=== PATIENT | male | born 1940 | race Caucasian/White ===

== ENCOUNTER → 2017-05-25 | Outpatient (CLI) | payer MEDICARE, BC ==
[~2017-05-25] MED LIST: ASPIRIN325 PO; CRESTOR5 MG PO; FISH OIL 1,001000 M2 PO; FISH OIL 1,001000 MG PO; FLOMAX PO; HYDROCODON-ACE1 EAC5 PO; HYDROCODONE-AP1 EA11 PO; HYDROCODONE-AP1 EAC6 PO; HYDROCODONE-APA1 TA1 PO; LEVAQUIN 750 M750 MG PO; LIDODERM 5%1 PATC1 TRANSDERM; MEDROLDOSEPACK PO; METFORMIN HCL500 MG PO; MIRALAX17 GM PO; MOBIC7.5 MG PO; MS CONTIN15 MG PO; MS CONTIN30 MG PO; MS CONTIN60 MG PO; NORCO 10-325 T1 EACH PO; NORCO 7.5-3251 EACH PO; PROAIR HFA8.5 GM INH; PROTONIX40 M1 PO; STELAZINE PO; STOOL SOFTENER1 EAC2 PO; TOPROL XL PO; TYLENOL325 MG PO; ZANAFLEX4 M1 PO; ZANAFLEX4 MG PO; ZOCOR PO; ms contin PO
--- NOTE | 2017-05-27 09:59 | PAINCON ---
[address] [address] PAIN MANAGEMENT CONSULTATION Name: TARAN MAI [id number] Admission: 05/25/17 Attend Phys: Edvin Tomlinson Discharge: Date of : 39 Report #: [id number] THIS REPORT FOR: //name// CC: Too Cardoso DATE OF SERVICE: 05/25/2017 The patient is a 76-year-old gentleman being treated for lumbar radiculopathy, axial back pain, DJD affecting left shoulder, history of pancreatitis, requiring high-risk complex medication management. Last seen in Pain Clinic on 04/27/2017. Prior random drug screen at that date was positive for prescribed medication. The interval since we last saw him, he is seen in the ER 05/07/2017. Noting significant right knee pain. Returns to Pain Clinic today noting pain remains problematic and interferes with function. He did see an orthopedic surgeon about a week and a half ago. They suggested patient may benefit from a total knee arthroplasty; he has a followup appointment in 4 weeks. He had prior had a left total knee arthroplasty years ago and that is actually doing reasonably well. Uses a cane in his right hand, notes his low back and neck pain seems to be better (we did resume low-dose MS Contin 15 mg q. 8 hours at last visit). Prior, he had been on MS Contin 30 mg q. 8 hours for many years, but was taken off this when he was admitted to the hospital last fall with cognitive dysfunction and impairment. Today's subjective pain score on 7 on a VAS. PHYSICAL EXAMINATION: Shows 5 feet 11 inches, 253-pound gentleman, BMI is elevated at 35.6 kg/m2. Blood pressure is 155/86, pulse 80, respirations 16. Rises from chair using armrest. Gait is moderately antalgic favoring the right knee. Diffuse tenderness across the low back, endomorphic build. No discrete trigger points noted. We reviewed the fact that opiate medications are being used to provide analgesia adequate to support activities of daily living, not attempting to achieve a specific pain score on the 0-10 Visual Analog Scale. The current opiate medications are providing sufficient analgesia to allow the patient to participate in activities of daily living. The patient is not exhibiting any aberrant behavior suggestive of drug diversion. The patient is not having any adverse reactions to medications. The patient is not suffering from daytime somnolence or mental acuity changes. The patient is managing opiate-induced constipation with appropriate ayqi-wih-sijhkdc [place] [address] PAIN MANAGEMENT CONSULTATION Name: SERGEITARAN Jonathan Room: [facility]#: [id number] Admission: 05/25/17 Attend Phys: Edvin Tomlinson Discharge: Date of : 39 Report #: [id number] considerations. The patient was counseled on concern for caution with operating a motor vehicle while using opiate medications. A physical exam was performed and the patient's functional status was evaluated. All patients with back pain were advised against the bed rest greater than 4 days and were advised to return to normal activities. Pain score assessment was noted and the treatment plan was reviewed with the patient. All current medications, both prescribed and OTC were reviewed and reconciled on the electronic medical record. Tobacco screening was accomplished and smoking cessation was advised when indicated. BMI was noted and diet/exercise modification was recommended for all patients following outside normal parameters. I reviewed with the patient today their responsibilities to safeguard prescription medications, reviewed their responsibility to utilize medications only as prescribed by the physician. They are to seek and receive pain medications only from 1 physician group ( [facility]). They are to use 1 pharmacy and keep the clinic informed if they change pharmacies. Their responsibilities include making followup visits in a timely fashion and to avoid abrupt discontinuation of medication usage. Their responsibilities further include bringing their medications (bottles from the pharmacy with residual pills) to the visit for possible confirmation of pill counts and the patient understands it is their responsibility to submit to random drug screens to ensure both that the medications prescribed are present, and that no other controlled substances are present. All prescriptions provided today were generated electronically. ASSESSMENT: Chronic axial back pain; lumbar radiculopathy; degenerative joint disease bilateral knees, status post left total knee arthroplasty, in need of a right total knee arthroplasty. RECOMMENDATION: Continue MS Contin 15 mg q. 8 hours, taken the liberty of writing for 2 months of medications. Continue hydrocodone 7.5/325 up to 4 a day for breakthrough pain. We will see the patient in 2 months or earlier if needed. May require short increase in overall opiate, status post total knee arthroplasty, but we will try and aggressively wean back to simply hydrocodone for p.r.n. pain after rehab for knee. <ELECTRONICALLY SIGNED> By: Too Pina DO 05/27/17 0959 [id number] [id number] Pina DO /nt
== END ==
LOC: M.PC 02:35
DX: M54.16 Radiculopathy, lumbar region (principal); M54.9 Dorsalgia, unspecified; M17.0 Bilateral primary osteoarthritis of knee; M19.012 Primary osteoarthritis, left shoulder; Z87.19 Personal history of other diseases of the digestive system; Z79.899 Other long term (current) drug therapy; Z96.653 Presence of artificial knee joint, bilateral

== ENCOUNTER → 2017-06-08 | Outpatient (CLI) | payer MEDICARE, BC ==
--- NOTE | 2017-06-10 07:24 | PAINCON ---
[address] [address] PAIN MANAGEMENT CONSULTATION Name: TARAN MAI [id number] Admission: 06/08/17 Attend Phys: Edvin Tomlinson Discharge: Date of : 39 Report #: [id number] THIS REPORT FOR: //name// CC: FAM unknown Too Pina DATE OF SERVICE: 06/08/2017 HISTORY OF PRESENT ILLNESS: The patient is a 76-year-old gentleman, typically treated for chronic lumbar radiculopathy, axial back pain and abdominal pain requiring high risk complex medication management. Last seen in pain clinic on 05/25/2017. Continued on MS Contin 15 mg q.8 hours. We had added a "prn" recently, he is using hydrocodone 7.5/325 up to 4 a day for breakthrough pain. He was having ongoing right knee pain on last visit. Prior random drug screen on 04/27/2017 was positive for prescribed medications. He presents to the pain clinic today for acute exacerbation of right knee pain. He is scheduled to see an orthopedic surgeon on 06/14/2017. He notes he has DJD and they have talked about replacing the knee, but he has significant ballottable edema and extreme pain in the knee. PHYSICAL EXAMINATION: Shows afebrile gentleman. Temperature is 98.3, blood pressure 149/67, pulse 76, respiration is 16. Rates his pain an 8-10 on a VAS. Pain is primarily right knee at this point. Again, ballottable edema was appreciable. There is no erythema or calor over the knee. ASSESSMENT: Degenerative joint disease with acute exacerbation of right knee pain. RECOMMENDATIONS: Arthrocentesis, right knee and steroid injection. PROCEDURE NOTE: After written and informed consent was obtained, the patient had a 3-minute orthopedic prep to the right knee. Skin wheal with Xylocaine was raised. A 22-gauge Angiocath was placed from a superior medial aspect in an inferior lateral trajectory under the patella. A 20 mL of essentially straw colored clear fluid was aspirated. A 40 mg triamcinolone plus 2 mL of 0.5% preservative-free bupivacaine was injected into and around the knee joint. Timpson were removed. The area was cleansed. Band-Aids applied. The patient monitored for an appropriate period of time, discharged in good and stable condition. <ELECTRONICALLY SIGNED> By: Too Pina DO 06/10/17 0724 1429 [id number] Pina DO /nt
== END | disposition home or self-care (01) ==
LOC: M.PC 01:27
DX: M17.11 Unilateral primary osteoarthritis, right knee (principal); G89.29 Other chronic pain; Z79.891 Long term (current) use of opiate analgesic; Z98.890 Other specified postprocedural states; Z79.82 Long term (current) use of aspirin; Z79.899 Other long term (current) drug therapy

== ENCOUNTER → 2017-06-22 | Outpatient (CLI) | payer MEDICARE, BC ==
--- NOTE | 2017-06-27 07:21 | PAINCON ---
[address] [address] PAIN MANAGEMENT CONSULTATION Name: TARAN MAI [facility]#: [id number] Admission: 06/22/17 Attend Phys: Edvin Tomlinson Discharge: Date of : 39 Report #: [id number] THIS REPORT FOR: //name// CC: FAM unknown Too Pina DATE OF SERVICE: 06/22/2017 HISTORY OF PRESENT ILLNESS: The patient is a pleasant 76-year-old gentleman typically treated for lumbar radiculopathy, axial back pain, requiring high risk complex medication management. Two weeks ago, 06/08/2017, he had presented to the pain clinic with increasing swelling of the left knee. I did an arthrocentesis removing 20 mL of straw-colored fluid. The patient returns to the pain clinic today. Knee edema has recurred. He has increasing pain in the knee. PHYSICAL EXAMINATION: GENERAL: Does show a pleasant 76-year-old gentleman. VITAL SIGNS: Note, he is afebrile, temperature 98.5, blood pressure 157/97, pulse 89 and respirations are 18. MUSCULOSKELETAL: Rates pain at 8, right knee; 5/10 elsewhere. Does have a lot of edema in the right knee. RECOMMENDATIONS: We will repeat arthrocentesis today and refer to Orthopedics. PROCEDURE NOTE: Right knee arthrocentesis with fluoroscopy. PROCEDURE: After written and informed consent was obtained, the patient was taken to the fluoroscopy suite, placed in supine position with bolster under the right knee. Three minutes orthopedic prep was accomplished. Skin wheal with Xylocaine was raised. A 20-gauge Angiocath was inserted from superomedial entry in an inferolateral trajectory under the patella. Fluoroscopy time was under 5 seconds showed good needle placement. Stylet was removed and 15 mL of a moderately blood tinged clear aspirate was removed. A 20 mg of triamcinolone plus 2 mL of 0.5% preservative-free bupivacaine was injected in the knee. Area was cleansed, Band-Aids applied. The patient was told to use ice to the area today. Referred him to Orthopedics for further evaluation, possible arthroscopy. <ELECTRONICALLY SIGNED> By: Too Pina DO 06/27/17 0721 1251 0203Too Pina DO /nt
== END | disposition home or self-care (01) ==
LOC: M.PC 02:55
DX: M25.561 Pain in right knee (principal); G89.29 Other chronic pain; M19.90 Unspecified osteoarthritis, unspecified site; Z79.891 Long term (current) use of opiate analgesic; Z79.82 Long term (current) use of aspirin

== ENCOUNTER 2017-07-16 21:46 | Emergency (ER) | payer MEDICARE, BC ==
[~2017-07-16] VITALS: Ht 180.3 cm; Wt 111.1 kg
[2017-07-16] MEDS ORDERED: NORCO 10-325 T1 EACH PO (22:00)
[2017-07-16 22:05] VITALS: BP 176/100
[2017-07-20] MEDS ORDERED: NORCO 7.5-3251 EACH PO (08:36)
[2017-07-20] MEDS ORDERED: MS CONTIN15 MG PO (08:36)
[2017-07-20] MEDS ORDERED: MS CONTIN30 MG PO (08:37)
[2017-09-07] MEDS ORDERED: NORCO 7.5-3251 EACH PO (08:44)
[2017-09-07] MEDS ORDERED: MS CONTIN15 MG PO (08:44)
[2017-11-02] MEDS ORDERED: NORCO 7.5-3251 EACH PO (08:25)
[2017-11-02] MEDS ORDERED: MS CONTIN15 MG PO ×2 (08:25)
[2017-11-02] MEDS ORDERED: ZANAFLEX4 MG PO (08:25)
== END 2017-07-16 22:16 | disposition home or self-care (01) ==
LOC: M.ERS 21:46
DX: M25.561 Pain in right knee (principal); G89.29 Other chronic pain; M19.90 Unspecified osteoarthritis, unspecified site; I10 Essential (primary) hypertension; I25.10 Atherosclerotic heart disease of native coronary artery without angina pectoris; E78.00 Pure hypercholesterolemia, unspecified; F11.11 Opioid abuse, in remission; Z96.652 Presence of left artificial knee joint; Z85.46 Personal history of malignant neoplasm of prostate

== ENCOUNTER → 2017-07-20 | Outpatient (CLI) | payer MEDICARE, BC ==
--- NOTE | 2017-07-27 07:59 | PAINCON ---
[address] [address] PAIN MANAGEMENT CONSULTATION Name: TARAN MAI [id number] Admission: 07/20/17 Attend Phys: Edvin Tomlinson Discharge: Date of : 39 Report #: [id number] THIS REPORT FOR: //name// CC: FAM unknown Too Pina DATE OF SERVICE: 07/20/2017 The patient is a 76-year-old gentleman well known to the Pain Clinic, originally treated for lumbar radiculopathy and axial back pain, has ongoing DJD affecting right knee and left shoulder requiring complex medication management. Last seen in the Pain Clinic on 06/22/2017 when we did a right knee arthrocentesis taking about 20 mL of fluid off, had prior done similar arthrocentesis on 06/08/2017. The patient returns to Pain Clinic today. We had a prolonged visit, greater than 25 minutes was spent with the patient reviewing significant interval issues. The patient notes pain in the knee has continued to be quite problematic. In fact, he presented to the ER on 07/16/2017. They did provide him a prescription with some hydrocodone 10. He had run out of his morphine. He notes the pain in the left knee is simply intractable. He has markedly antalgic gait presently. PHYSICAL EXAMINATION: Otherwise, shows somewhat disheveled 76-year-old gentleman, BMI is 33 kg/m2. Blood pressure is modestly elevated 170/89, pulse 108, respirations 16. Rates his pain "10" on VAS. Pain primarily in the right knee. Does have an appointment with Dr. Graff for a total knee arthroplasty on 08/05/2017. He does, however, require cardiac clearance. I talked to the patient today about therapeutic options. Again, given significant need for total knee arthroplasty, I would hope that he could at least get a spinal anesthetic and some light sedation with proper cardiac monitoring he should be able to get through the surgery. I would plan on continuing his baseline MS Contin 15 mg t.i.d. postoperatively. Physical examination again does note significant pain in the right knee. There is a little bit of ballotable edema, markedly antalgic gait, diffuse tenderness. Endomorphic build with a moderate pannus. Lungs are clear at this time. Heart is regular and rhythmical without murmur. We reviewed the fact that opiate medications are being [place] [address] PAIN MANAGEMENT CONSULTATION Name: TARAN MAI Room: [facility]#: [id number] Admission: 07/20/17 Attend Phys: Edvin Tomlinson Discharge: Date of : 39 Report #: [id number] adequate to support activities of daily living, not attempting to achieve a specific pain score on the 0-10 Visual Analog Scale. The current opiate medications are providing sufficient analgesia to allow the patient to participate in activities of daily living. The patient is not exhibiting any aberrant behavior suggestive of drug diversion. The patient is not having any adverse reactions to medications. The patient is not suffering from daytime somnolence or mental acuity changes. The patient is managing opiate-induced constipation with appropriate taex-oit-lkyntnk agents and dietary considerations. The patient was counseled on concern for caution with operating a motor vehicle while using opiate medications. A physical exam was performed and the patient's functional status was evaluated. All patients with back pain were advised against the bed rest greater than 4 days and were advised to return to normal activities. Pain score assessment was noted and the treatment plan was reviewed with the patient. All current medications, both prescribed and OTC were reviewed and reconciled on the electronic medical record. Tobacco screening was accomplished and smoking cessation was advised when indicated. BMI was noted and diet/exercise modification was recommended for all patients following outside normal parameters. I reviewed with the patient today their responsibilities to safeguard prescription medications, reviewed their responsibility to utilize medications only as prescribed by the physician. They are to seek and receive pain medications only from 1 physician group ( [facility]). They are to use 1 pharmacy and keep the clinic informed if they change pharmacies. Their responsibilities include making followup visits in a timely fashion and to avoid abrupt discontinuation of medication usage. Their responsibilities further include bringing their medications (bottles from the pharmacy with residual pills) to the visit for possible confirmation of pill counts and the patient understands it is their responsibility to submit to random drug screens to ensure both that the medications prescribed are present, and that no other controlled substances are present. All prescriptions provided today were generated electronically. ASSESSMENT: Chronic axial back pain and degenerative joint disease affecting primarily right knee, history of left shoulder, status post left total knee arthroplasty, requiring complex medication management. RECOMMENDATIONS: 1. We will increase MS Contin to 30 mg b.i.d. (increasing overall load from 45-60 mg of morphine a day). I have taken the liberty of writing for 32 tablets; this will be 16 days prescription sufficient to get to the 08/05/2017 knee surgery. 2. Continue hydrocodone 7.5/325 four a day, prescription for 64 tablets, again 4 [place] [address] PAIN MANAGEMENT CONSULTATION Name: TARAN MAI Room: [facility]#: [id number] Admission: 07/20/17 Attend Phys: Edvin Tomlinson Discharge: Date of : 39 Report #: [id number] 3. I provided the patient with 2 prescriptions to be released 08/05/2017, the first reverting back to MS Contin 15 mg t.i.d., 90 tablets and the second continuing hydrocodone 7.5/325 four a day, dispensed 120 tablets. With significant ongoing pain today, patient was given an IM injection of Toradol 30 mg, monitored for an appropriate period of time, discharged in good and stable condition, noting some subjective improvement of baseline pain. <ELECTRONICALLY SIGNED> By: Too Pina DO 07/27/17 0759 0844 0907Too Pina DO /nt
== END ==
LOC: M.PC 04:51
DX: M17.11 Unilateral primary osteoarthritis, right knee (principal); M54.16 Radiculopathy, lumbar region; Z79.899 Other long term (current) drug therapy

== ENCOUNTER → 2017-09-07 | Outpatient (CLI) | payer MEDICARE, BC ==
--- NOTE | 2017-09-08 09:37 | PAINCON ---
[facility] [address] [place] [address] PAIN MANAGEMENT CONSULTATION Name: TARAN MAI Room: [facility] Brittany#: [id number] Admission: 09/07/17 Attend Phys: Edvin Tomlinson Discharge: Date of : 39 Report #: [id number] THIS REPORT FOR: //name// CC: Too Cardoso DATE OF SERVICE: 09/07/2017 The patient is a 76-year-old gentleman long treated for lumbar radiculopathy, axial back pain requiring complex medication management. He had prior been seen for right knee osteoarthritis in the last few visits. I had aspirated 20-30 mL of bloody aspirate several months ago. Fortunately, he progressed to have a right total knee arthroplasty about 30 days ago. He notes that he is finishing physical therapy today. He actually has fairly good range of motion in that knee. He does complain of ongoing pain, not managed with current medication. I had increased the patient from MS Contin 15 mg b.i.d. to MS Contin 30 mg b.i.d. prior to surgery, dropped back to MS Contin 15 mg t.i.d. with hydrocodone for breakthrough after surgery. He returns to pain clinic today, rating his pain as 7 on a VAS. Notes pain in the right knee is improved following the surgery. Still has generalized pain "all over" from his generalized osteoarthritis. PHYSICAL EXAMINATION: Shows 5 feet 11 inches, 246 pounds gentleman, BMI is 34.4 kilograms per meter squared. Blood pressure 137/65, pulse 87, respirations 16. He is alert and oriented to person, place and time presently. When he is on higher dose opiates, he became quite cognitively impaired. In fact, he was admitted to the hospital and was found to have 4 or 5 coins that he had swallowed, the ingestion of which he had no recall. EXTREMITIES: He rises from the chair using armrest. He actually has very good range of motion in that right knee, flexion is good to 110 degrees, extension is completely straight. Modestly antalgic gait, diffuse tenderness across the low back. Gait is minimally antalgic. We reviewed the fact that opiate medications are being used to provide analgesia adequate to support activities of daily living, not attempting to achieve a specific pain score on the 0-10 Visual Analog Scale. The current opiate medications are providing sufficient analgesia to allow the patient to participate in activities of daily living. The patient is not exhibiting any aberrant behavior suggestive of drug diversion. The patient is not having any adverse reactions to medications. The patient is not suffering from daytime somnolence or mental acuity changes. The patient is managing opiate-induced constipation with appropriate naxf-fhx-uhijmzl agents and dietary considerations. The patient was counseled on concern for caution with operating a motor vehicle [place] [address] PAIN MANAGEMENT CONSULTATION Name: TARAN MAI Room: [facility]#: [id number] Admission: 09/07/17 Attend Phys: Edvin Tomlinson Discharge: Date of : 39 Report #: [id number] A physical exam was performed and the patient's functional status was evaluated. All patients with back pain were advised against the bed rest greater than 4 days and were advised to return to normal activities. Pain score assessment was noted and the treatment plan was reviewed with the patient. All current medications, both prescribed and OTC were reviewed and reconciled on the electronic medical record. Tobacco screening was accomplished and smoking cessation was advised when indicated. BMI was noted and diet/exercise modification was recommended for all patients following outside normal parameters. I reviewed with the patient today their responsibilities to safeguard prescription medications, reviewed their responsibility to utilize medications only as prescribed by the physician. They are to seek and receive pain medications only from 1 physician group ( [facility]). They are to use 1 pharmacy and keep the clinic informed if they change pharmacies. Their responsibilities include making followup visits in a timely fashion and to avoid abrupt discontinuation of medication usage. Their responsibilities further include bringing their medications (bottles from the pharmacy with residual pills) to the visit for possible confirmation of pill counts and the patient understands it is their responsibility to submit to random drug screens to ensure both that the medications prescribed are present, and that no other controlled substances are present. All prescriptions provided today were generated electronically. ASSESSMENT: Chronic axial back pain, lumbar radiculopathy, osteoarthritis, chronic complex medication management. RECOMMENDATIONS: We will continue MS Contin 15 mg, we will increase to t.i.d. Continue hydrocodone 7.5/325 t.i.d. I have taken the liberty of writing for 2 months of current medication. RECOMMENDATION: Discussion with the patient today about therapeutic options going forward. I am leaving practice. If we cannot find another physician to take over my patients, I suggest he follow up with Dr. Kiser who had prior been his treating physician. Dr. Kiser left this office and the patient elected to stay at [facility]. He still remembers Dr. Kiser fondly. Again, the reason for me taking over the patient's care in May [address] Kiser relocated his practice to [place]; the patient felt more comfortable continuing to be seen at [facility]. This option may not continue to be available. There was not a conflict or medical reason for him to leave Dr Kiser's care. Incidentally, last random drug screen 04/27/2016 was positive [place] [address] PAIN MANAGEMENT CONSULTATION Name: JASONTARAN NAM [id number] Admission: 09/07/17 Attend Phys: Edvin Tomlinson Discharge: Date of : 39 Report #: [id number] The patient discharged in good and stable condition with 2 months of current medication. <ELECTRONICALLY SIGNED> By: Too Pina DO 09/08/17 0937 1547 [id number] Pina DO /nt
== END ==
LOC: M.PC 08-10 09:00
DX: M54.16 Radiculopathy, lumbar region (principal); M54.89 Other dorsalgia; G89.29 Other chronic pain; M19.90 Unspecified osteoarthritis, unspecified site

== ENCOUNTER 2017-09-22 09:19 | Emergency (ER) | payer MEDICARE, BC ==
[~2017-09-22] VITALS: Ht 180.3 cm; Wt 110.2 kg
[2017-09-22 10:06] LABS: ABSOLUTE EOSINOPHILS 0.1 thou/uL (0.0-0.7); ABSOLUTE LYMPHOCYTES 2.1 thou/uL (0.8-5.3); ABSOLUTE MONOCYTES 0.5 thou/uL (0.0-1.2); ABSOLUTE NEUTROPHILS 5.4 thou/uL (1.6-8.1); BASOPHILS 0.5 %; EOSINOPHILS 0.8 %; HEMATOCRIT 40.1 % (42.0-52.0); HEMOGLOBIN 13.2 gm/dL (14.0-18.0); LYMPHOCYTES 25.9 %; MCH 29.5 pg (26.0-34.0); MCV 89.5 fL (80.0-100.0); MONOCYTES 5.8 %; MPV 8.9 fl. (7.2-11.1); NUCLEATED RBCS 0 /100WBC; PLATELET COUNT* 237 thou/uL (150-400); RBC 4.48 mil/uL (4.50-6.00); RDW-CV 13.9 % (10.5-14.5)
[2017-09-22 10:16] LABS: ANION GAP 9 mmol/L (7-16); BUN 21 mg/dL (7-18); CALCIUM 9.3 mg/dL (8.5-10.1); CHLORIDE 103 mmol/L (98-107); CO2 28 mmol/L (21-32); CREATININE 1.3 mg/dL (0.6-1.3); GLUCOSE 207 mg/dL (70-99); POTASSIUM 4.2 mmol/L (3.5-5.1); SODIUM 140 mmol/L (136-145)
[2017-09-22 10:27] LABS: ALBUMIN 3.4 g/dL (3.4-5.0); ALKALINE PHOSPHATASE 89 U/L (46-116); LIPASE 62 U/L (73-393); NT-PRO BRAIN NAT PEPTIDE 270 pg/mL (<300); SGOT 11 U/L (15-37); SGPT 8 U/L (30-65); TOTAL BILIRUBIN 0.3 mg/dL (<0.1-1.0); TOTAL PROTEIN 7.6 g/dL (6.4-8.2); TROPONIN-I LEVEL <0.06 ng/mL (<0.06)
[2017-09-22 11:15] VITALS: BP 156/73
--- NOTE | 2017-09-22 15:55 | EKG ---
[place] [address] ELECTROCARDIOGRAM REPORT Name: JASONTARAN NAM Room: [facility]#: [id number] Admission: 09/22/17 Attend Phys: Discharge: 09/22/17 Date of : 39 Report #: [id number] THIS REPORT FOR: //name// [facility] ED Test Date: 2017-09-22 Test Time: 09:24:34 Pat Name: TARAN MAI Department: Room: Gender: M Network Consultant: Adriano GAY : 1940 Requested By: Cesar Dunaway Order Number: [id number] MD: Tyler Richardson Measurements Intervals [place] Rate: 98 P: 36 [place]: 151 QRS: 42 QRSD: 83 T: 58 QT: 355 QTc: 454 Interpretive Statements Sinus rhythm Probable left atrial enlargement Compared to ECG 12/02/2011 07:42:30 No significant changes Electronically Signed On 09-22-2017 15:55:22 CDT by Tyler Richardson [email or web address] <ELECTRONICALLY SIGNED> By: Tyler Richardson MD, [facility] 09/22/17 1555 3 3 Tyler Richardson MD, FAC /EPI
[2017-11-02] MEDS ORDERED: NORCO 7.5-3251 EACH PO (08:25)
[2017-11-02] MEDS ORDERED: ZANAFLEX4 MG PO (08:25)
[2017-11-02] MEDS ORDERED: MS CONTIN15 MG PO ×2 (08:25)
== END 2017-09-22 11:15 | disposition left against medical advice (07) ==
LOC: M.ERS 09:19
PROVIDERS: Emergency Medicine Emergency Medical Services
DX: R07.9 Chest pain, unspecified (principal); E78.00 Pure hypercholesterolemia, unspecified; M19.90 Unspecified osteoarthritis, unspecified site; I10 Essential (primary) hypertension; G89.29 Other chronic pain; Z96.652 Presence of left artificial knee joint; Z85.46 Personal history of malignant neoplasm of prostate

== ENCOUNTER → 2017-11-02 | Outpatient (CLI) | payer MEDICARE, BC ==
--- NOTE | 2017-11-03 07:56 | PAINCON ---
[address] [address] PAIN MANAGEMENT CONSULTATION Name: TARAN MAI [facility] [id number] Admission: 11/02/17 Attend Phys: Edvin Tomlinson Discharge: Date of : 38 Report #: [id number] THIS REPORT FOR: //name// CC: Too Cardoso The patient is a 77-year-old gentleman whose care I took over in 04/2016. Prior had been treated for many years by Dr. Joseph Kiser for chronic back pain and right knee pain. He had been stable on MS Contin 15 mg q. 8 hours with hydrocodone 7.5/325 up to 4 a day. Actually titrated up to higher doses at one point MS Contin 30 mg. He had some cognitive impairment at one point, was admitted to the hospital and was weaned down on opiates. We continued with hydrocodone for a short period, but he had significant decreased function and we resumed MS Contin 15 mg t.i.d. sometime ago, had been relatively stable with p.r.n. hydrocodone. Last visit on 09/07/2017, we enabled 7.5/325 of hydrocodone for breakthrough pain and continued MS Contin 15 mg q. 8 hours. In the interval since we last saw him, he was seen in the hospital on 09/22/17 with chest pain. They diagnosed noncardiac pain, but with multiple comorbidities recommended that he stay, he discharged himself AMA. He returns to the pain clinic today noting pain is primarily in his knees. He has osteoarthritis of both knees and is now status post, I believe, right total knee arthroplasty in July. Notes that this has helped somewhat. Last random drug screen on 04/27/2016 was positive for prescribed medications. I did get a buccal swab today, should be positive for both morphine and hydrocodone though the patient tells me he has been taking his hydrocodone more aggressively and has run out. Concerned that he has had trouble titrating his medications over time. I suggest we revert simply to a long-acting opiate, MS Contin 15 mg q. 8 hours with no breakthrough medicine. The patient was none too enthused about this recommendation, but I believe he ultimately understood. We will continue tizanidine 4 mg as needed for spasm. I am taking the liberty of writing for 2 months of current medication. We will continue hydrocodone but gradually starting to wean, 7.5/325 for 90 tablets. We will plan on decreasing this to 5/325 at next visit. The patient is discharged in good and stable condition after prolonged visit. Notes that his axial back pain got a little worse and he is seeing a chiropractor. We suggested simply massage if he wants any [place] [address] PAIN MANAGEMENT CONSULTATION Name: SERGEIANASTASIAMYRTLE Castillo Room: [facility] ZO Soto#: [id number] Admission: 11/02/17 Attend Phys: Edvin Tomlinson Discharge: Date of : 38 Report #: [id number] Physical examination is otherwise is relatively unchanged. Discharged in good and stable condition. Buccal swab accomplished today. <ELECTRONICALLY SIGNED> By: Too Pina DO 11/03/17 0756 [id number] [id number] Servicesfern Pina DO /nt
== END ==
LOC: M.PC 04:12
DX: M17.0 Bilateral primary osteoarthritis of knee (principal); M54.5 Low back pain; G89.29 Other chronic pain

== ENCOUNTER → 2018-02-06 | Outpatient (CLI) | payer MEDICARE, BC ==
[2018-02-06 14:32] LABS: ABSOLUTE EOSINOPHILS 0.2 thou/uL (0.0-0.7); ABSOLUTE LYMPHOCYTES 2.3 thou/uL (0.8-5.3); ABSOLUTE MONOCYTES 0.5 thou/uL (0.0-1.2); ABSOLUTE NEUTROPHILS 4.5 thou/uL (1.6-8.1); BASOPHILS 0.6 %; HEMATOCRIT 39.8 % (42.0-52.0); HEMOGLOBIN 13.1 gm/dL (14.0-18.0); MCH 29.3 pg (26.0-34.0); MCHC 32.8 g/dL (28.0-37.0); MCV 89.4 fL (80.0-100.0); MPV 8.2 fl. (7.2-11.1); NUCLEATED RBCS 0 /100WBC; PLATELET COUNT* 253 thou/uL (150-400); POLYS 59.4 %; RBC 4.45 mil/uL (4.50-6.00); RDW-CV 14.4 % (10.5-14.5); WBC 7.6 thou/uL (4.0-11.0)
[2018-02-06 14:51] LABS: ALBUMIN 3.5 g/dL (3.4-5.0); ALKALINE PHOSPHATASE 66 U/L (46-116); ANION GAP 8 mmol/L (7-16); BUN 23 mg/dL (7-18); CALCIUM 8.9 mg/dL (8.5-10.1); CHLORIDE 101 mmol/L (98-107); CHOLESTEROL 154 mg/dL (<200); CO2 28 mmol/L (21-32); CREATININE 1.4 mg/dL (0.6-1.3); GLUCOSE 169 mg/dL (70-99); HDL CHOLESTEROL 25 mg/dL (>40); LDL CHOLESTEROL 77 mg/dL (<100); SGOT 21 U/L (15-37); SGPT 14 U/L (30-65); SODIUM 137 mmol/L (136-145); TC:HDL 6.2 Ratio (Not establshd); TOTAL BILIRUBIN 0.4 mg/dL (<0.1-1.0); TOTAL PROTEIN 8.2 g/dL (6.4-8.2); TRIGLYCERIDE 264 mg/dL (<150); VLDL 53 mg/dL (<40)
[2018-02-06 14:52] LABS: SERUM ASSESSMENT Clear
[2018-02-07 05:09] LABS: GLYCOHEMOGLOBIN (HGB A1C) 6.9 % (4.8-5.6)
== END ==
LOC: M.LAB 14:11
PROVIDERS: Family Medicine
DX: Z00.01 Encounter for general adult medical examination with abnormal findings (principal); I10 Essential (primary) hypertension; F20.89 Other schizophrenia; R53.83 Other fatigue; G89.29 Other chronic pain; R73.09 Other abnormal glucose

== ENCOUNTER → 2018-10-16 | Outpatient (CLI) | payer MEDICARE, BC | LOC: M.PC 07:40 | DX: M47.816 Spondylosis without myelopathy or radiculopathy, lumbar region (principal); M47.812 Spondylosis without myelopathy or radiculopathy, cervical region; M51.26 Other intervertebral disc displacement, lumbar region; M48.061 Spinal stenosis, lumbar region without neurogenic claudication; M25.561 Pain in right knee; M25.562 Pain in left knee; M48.02 Spinal stenosis, cervical region; M25.78 Osteophyte, vertebrae; M51.36 Other intervertebral disc degeneration, lumbar region; J43.9 Emphysema, unspecified; I70.0 Atherosclerosis of aorta; J98.4 Other disorders of lung; I10 Essential (primary) hypertension; C61 Malignant neoplasm of prostate; E78.5 Hyperlipidemia, unspecified; I25.10 Atherosclerotic heart disease of native coronary artery without angina pectoris; M19.90 Unspecified osteoarthritis, unspecified site; Z96.653 Presence of artificial knee joint, bilateral ==

== ENCOUNTER → 2018-10-18 | Outpatient (CLI) | payer MEDICARE, BC ==
[~2018-10-18] MED LIST changes: +GABAPENTIN100 MG PO
== END | disposition home or self-care (01) ==
LOC: M.PC 05:10
DX: M51.36 Other intervertebral disc degeneration, lumbar region (principal); M47.816 Spondylosis without myelopathy or radiculopathy, lumbar region; G89.29 Other chronic pain; M47.812 Spondylosis without myelopathy or radiculopathy, cervical region; M50.10 Cervical disc disorder with radiculopathy, unspecified cervical region; M19.90 Unspecified osteoarthritis, unspecified site; Z96.653 Presence of artificial knee joint, bilateral; Z79.82 Long term (current) use of aspirin; Z87.19 Personal history of other diseases of the digestive system; Z98.890 Other specified postprocedural states; Z79.891 Long term (current) use of opiate analgesic

== ENCOUNTER → 2018-10-25 | Outpatient (CLI) | payer MEDICARE, BC | LOC: M.PC 05:14 | DX: M47.816 Spondylosis without myelopathy or radiculopathy, lumbar region (principal); M51.36 Other intervertebral disc degeneration, lumbar region; M47.812 Spondylosis without myelopathy or radiculopathy, cervical region; M50.30 Other cervical disc degeneration, unspecified cervical region; G89.29 Other chronic pain; Z96.653 Presence of artificial knee joint, bilateral ==

== ENCOUNTER → 2018-11-08 | Outpatient (CLI) | payer MEDICARE, BC | END | disposition home or self-care (01) | LOC: M.PC 05:24 | DX: M79.18 Myalgia, other site (principal); M50.10 Cervical disc disorder with radiculopathy, unspecified cervical region; M47.892 Other spondylosis, cervical region; M47.896 Other spondylosis, lumbar region; M51.36 Other intervertebral disc degeneration, lumbar region; G89.29 Other chronic pain; M19.90 Unspecified osteoarthritis, unspecified site; Z96.653 Presence of artificial knee joint, bilateral; Z98.890 Other specified postprocedural states; Z79.899 Other long term (current) drug therapy; Z87.19 Personal history of other diseases of the digestive system; Z79.82 Long term (current) use of aspirin; Z79.891 Long term (current) use of opiate analgesic ==

== ENCOUNTER → 2018-11-22 | Outpatient (CLI) | payer MEDICARE, BC | LOC: M.PC 03:36 | DX: M51.36 Other intervertebral disc degeneration, lumbar region (principal); M47.816 Spondylosis without myelopathy or radiculopathy, lumbar region; M50.30 Other cervical disc degeneration, unspecified cervical region; M47.812 Spondylosis without myelopathy or radiculopathy, cervical region; G89.29 Other chronic pain; Z96.653 Presence of artificial knee joint, bilateral ==

== ENCOUNTER 2019-01-20 05:01 | Emergency (ER) | payer MEDICARE, BC ==
[~2019-01-20] VITALS: Ht 180.3 cm; Wt 115.7 kg
[2019-01-20 05:05] VITALS: BP 197/92
[2019-01-20] MEDS ORDERED: MS CONTIN15 MG PO (05:21)
== END 2019-01-20 05:27 | disposition home or self-care (01) ==
LOC: M.ERS 05:01
DX: G89.29 Other chronic pain (principal); M54.5 Low back pain; I10 Essential (primary) hypertension; E78.00 Pure hypercholesterolemia, unspecified; M19.90 Unspecified osteoarthritis, unspecified site; Z95.2 Presence of prosthetic heart valve; Z85.46 Personal history of malignant neoplasm of prostate; Z96.652 Presence of left artificial knee joint

== ENCOUNTER → 2019-09-24 | Outpatient (CLI) | payer MEDICARE, BC ==
[~2019-09-24] MED LIST changes: +APAP650 PO; +ASPIR 8181 M1 PO; +LIPITOR 20 MG T20 M1 PO; +METOPROLOL SUC100 MG PO; +diclofenac PO
== END | disposition home or self-care (01) ==
LOC: M.PC 08:21
DX: M79.18 Myalgia, other site (principal); M54.5 Low back pain; G89.29 Other chronic pain; M25.561 Pain in right knee; M25.562 Pain in left knee; M47.896 Other spondylosis, lumbar region; M51.36 Other intervertebral disc degeneration, lumbar region; M50.30 Other cervical disc degeneration, unspecified cervical region; M47.892 Other spondylosis, cervical region; Z96.653 Presence of artificial knee joint, bilateral; Z98.890 Other specified postprocedural states; Z79.899 Other long term (current) drug therapy

== ENCOUNTER → 2019-10-01 | Outpatient (CLI) | payer MEDICARE, BC | LOC: M.PC 04:29 | DX: M51.36 Other intervertebral disc degeneration, lumbar region (principal); M47.816 Spondylosis without myelopathy or radiculopathy, lumbar region; M50.30 Other cervical disc degeneration, unspecified cervical region; M47.812 Spondylosis without myelopathy or radiculopathy, cervical region; M25.561 Pain in right knee; M25.562 Pain in left knee; Z87.39 Personal history of other diseases of the musculoskeletal system and connective tissue; Z98.890 Other specified postprocedural states ==

== ENCOUNTER → 2019-10-22 | Outpatient (CLI) | payer MEDICARE, BC ==
[~2019-10-22] MED LIST changes: +MORPHINE SULFAT15 M3 PO
== END ==
LOC: M.PC 03:36
PROVIDERS: ATTEND Physical Medicine & Rehabilitation
DX: M47.816 Spondylosis without myelopathy or radiculopathy, lumbar region (principal); M47.812 Spondylosis without myelopathy or radiculopathy, cervical region; M50.30 Other cervical disc degeneration, unspecified cervical region; M51.36 Other intervertebral disc degeneration, lumbar region

== ENCOUNTER → 2019-11-05 | Outpatient (CLI) | payer MEDICARE, BC | LOC: M.PC 04:18 | PROVIDERS: ATTEND Physical Medicine & Rehabilitation | DX: M47.816 Spondylosis without myelopathy or radiculopathy, lumbar region (principal); M51.36 Other intervertebral disc degeneration, lumbar region; M47.812 Spondylosis without myelopathy or radiculopathy, cervical region; M50.30 Other cervical disc degeneration, unspecified cervical region; Z98.1 Arthrodesis status ==

== ENCOUNTER → 2019-11-10 | Emergency (ER) | payer MEDICARE, BC ==
[~2019-11-10] VITALS: Ht 180.3 cm; Wt 114.8 kg
[2019-11-10 04:31] VITALS: BP 157/97
== END ==
LOC: M.ERS 03:33
DX: M54.5 Low back pain (principal); G89.29 Other chronic pain; E78.00 Pure hypercholesterolemia, unspecified; M19.90 Unspecified osteoarthritis, unspecified site; F11.10 Opioid abuse, uncomplicated; I10 Essential (primary) hypertension; Z96.652 Presence of left artificial knee joint; Z76.0 Encounter for issue of repeat prescription; Z79.82 Long term (current) use of aspirin; Z79.899 Other long term (current) drug therapy

== ENCOUNTER → 2019-11-12 | Outpatient (CLI) | payer MEDICARE, BC | LOC: M.PC 09:07 | PROVIDERS: ATTEND Physical Medicine & Rehabilitation | DX: M47.812 Spondylosis without myelopathy or radiculopathy, cervical region (principal); M47.816 Spondylosis without myelopathy or radiculopathy, lumbar region; M50.30 Other cervical disc degeneration, unspecified cervical region; M51.36 Other intervertebral disc degeneration, lumbar region; M25.561 Pain in right knee; M25.562 Pain in left knee ==

== ENCOUNTER → 2019-11-26 | Outpatient (CLI) | payer MEDICARE, BC | LOC: M.PC 02:47 | PROVIDERS: ATTEND Physical Medicine & Rehabilitation | DX: M50.30 Other cervical disc degeneration, unspecified cervical region (principal); M47.816 Spondylosis without myelopathy or radiculopathy, lumbar region; M79.10 Myalgia, unspecified site; M25.561 Pain in right knee; M25.562 Pain in left knee; M51.36 Other intervertebral disc degeneration, lumbar region ==

== ENCOUNTER → 2019-12-10 | Outpatient (CLI) | payer MEDICARE, BC | LOC: M.PC 07:02 | PROVIDERS: ATTEND Physical Medicine & Rehabilitation | DX: M47.816 Spondylosis without myelopathy or radiculopathy, lumbar region (principal); M51.36 Other intervertebral disc degeneration, lumbar region; M47.813 Spondylosis without myelopathy or radiculopathy, cervicothoracic region; M50.30 Other cervical disc degeneration, unspecified cervical region ==

== ENCOUNTER → 2019-12-24 | Outpatient (CLI) | payer MEDICARE, BC | LOC: M.PC 02:42 | PROVIDERS: ATTEND Physical Medicine & Rehabilitation | DX: M50.30 Other cervical disc degeneration, unspecified cervical region (principal); M51.36 Other intervertebral disc degeneration, lumbar region; M47.816 Spondylosis without myelopathy or radiculopathy, lumbar region; M47.812 Spondylosis without myelopathy or radiculopathy, cervical region; M79.10 Myalgia, unspecified site; M25.562 Pain in left knee; M25.561 Pain in right knee ==

== ENCOUNTER → 2020-01-07 | Outpatient (CLI) | payer MEDICARE, BC | LOC: M.PC 08:35 | PROVIDERS: ATTEND Physical Medicine & Rehabilitation | DX: M47.816 Spondylosis without myelopathy or radiculopathy, lumbar region (principal); M51.36 Other intervertebral disc degeneration, lumbar region; M47.812 Spondylosis without myelopathy or radiculopathy, cervical region; M50.30 Other cervical disc degeneration, unspecified cervical region; M79.10 Myalgia, unspecified site; M25.561 Pain in right knee; M25.562 Pain in left knee ==

== ENCOUNTER → 2020-01-23 | Outpatient (CLI) | payer MEDICARE, BC | LOC: M.PC 07:58 | PROVIDERS: ATTEND Physical Medicine & Rehabilitation | DX: M47.816 Spondylosis without myelopathy or radiculopathy, lumbar region (principal); M47.812 Spondylosis without myelopathy or radiculopathy, cervical region; M25.562 Pain in left knee; M25.561 Pain in right knee; Z96.653 Presence of artificial knee joint, bilateral ==

== ENCOUNTER → 2020-02-05 | Outpatient (CLI) | payer MEDICARE, BC ==
[2020-02-05 08:51] LABS: ABSOLUTE BASOPHILS 0.1 thou/uL (0.0-0.2); ABSOLUTE EOSINOPHILS 0.3 thou/uL (0.0-0.7); ABSOLUTE LYMPHOCYTES 2.5 thou/uL (0.8-5.3); ABSOLUTE MONOCYTES 0.4 thou/uL (0.0-1.2); ABSOLUTE NEUTROPHILS 3.7 thou/uL (1.6-8.1); BASOPHILS 1.1 %; EOSINOPHILS 3.8 %; HEMATOCRIT 42.6 % (42.0-52.0); HEMOGLOBIN 14.4 gm/dL (14.0-18.0); LYMPHOCYTES 35.3 %; MCHC 33.8 g/dL (28.0-37.0); MCV 88.7 fL (80.0-100.0); MONOCYTES 6.1 %; MPV 8.9 fl. (7.2-11.1); NUCLEATED RBCS 0 /100WBC; PLATELET COUNT* 237 thou/uL (150-400); POLYS 53.7 %; RDW-CV 13.5 % (10.5-14.5)
[2020-02-05 09:00] LABS: ALKALINE PHOSPHATASE 70 U/L (46-116); ANION GAP 7 mmol/L (7-16); BUN 29 mg/dL (7-18); CHLORIDE 104 mmol/L (98-107); CHOLESTEROL 126 mg/dL (<200); CO2 28 mmol/L (21-32); CREATININE 1.9 mg/dL (0.6-1.3); GLUCOSE 143 mg/dL (70-99); HDL CHOLESTEROL 27 mg/dL (>40); LDL CHOLESTEROL 58 mg/dL (<100); SGOT 11 U/L (15-37); SGPT 11 U/L (30-65); SODIUM 139 mmol/L (136-145); TC:HDL 4.7 Ratio (Not establshd); TOTAL BILIRUBIN 0.5 mg/dL (<0.1-1.0); TOTAL PROTEIN 8.5 g/dL (6.4-8.2); TRIGLYCERIDE 208 mg/dL (<150); VLDL 42 mg/dL (<40)
[2020-02-05 09:01] LABS: SERUM ASSESSMENT Clear
[2020-02-06 02:06] LABS: GLYCOHEMOGLOBIN (HGB A1C) 6.7 % (4.8-5.6)
== END ==
LOC: M.LAB 08:14
PROVIDERS: ATTEND Nurse Practitioner
DX: E78.00 Pure hypercholesterolemia, unspecified (principal); R73.09 Other abnormal glucose; I25.10 Atherosclerotic heart disease of native coronary artery without angina pectoris; I10 Essential (primary) hypertension; Z13.29 Encounter for screening for other suspected endocrine disorder

== ENCOUNTER → 2020-02-06 | Outpatient (CLI) | payer MEDICARE, BC | LOC: M.PC 07:53 | PROVIDERS: ATTEND Physical Medicine & Rehabilitation | DX: M47.812 Spondylosis without myelopathy or radiculopathy, cervical region (principal); M50.30 Other cervical disc degeneration, unspecified cervical region; M79.10 Myalgia, unspecified site; M25.561 Pain in right knee; M25.562 Pain in left knee ==

== ENCOUNTER → 2020-02-20 | Outpatient (CLI) | payer MEDICARE, BC ==
[~2020-02-20] MED LIST changes: +MORPHINE SULFAT15 MG PO
== END ==
LOC: M.PC 08:08
PROVIDERS: ATTEND Physical Medicine & Rehabilitation
DX: M47.816 Spondylosis without myelopathy or radiculopathy, lumbar region (principal); M51.36 Other intervertebral disc degeneration, lumbar region; M47.812 Spondylosis without myelopathy or radiculopathy, cervical region; M50.30 Other cervical disc degeneration, unspecified cervical region; M79.10 Myalgia, unspecified site; M25.561 Pain in right knee; M25.562 Pain in left knee; Z96.653 Presence of artificial knee joint, bilateral

== ENCOUNTER → 2020-03-05 | Outpatient (CLI) | payer MEDICARE, BC | LOC: M.PC 07:39 | PROVIDERS: ATTEND Physical Medicine & Rehabilitation | DX: M54.5 Low back pain (principal) ==

== ENCOUNTER → 2020-03-24 | Outpatient (CLI) | payer MEDICARE, BC | LOC: M.PC 08:08 | PROVIDERS: ATTEND Physical Medicine & Rehabilitation | DX: M47.812 Spondylosis without myelopathy or radiculopathy, cervical region (principal); M79.10 Myalgia, unspecified site; M50.33 Other cervical disc degeneration, cervicothoracic region; M25.561 Pain in right knee; M25.562 Pain in left knee ==

== ENCOUNTER → 2020-04-07 | Outpatient (CLI) | payer MEDICARE, BC | LOC: M.PC 07:39 | PROVIDERS: ATTEND Physical Medicine & Rehabilitation | DX: M51.36 Other intervertebral disc degeneration, lumbar region (principal); M47.816 Spondylosis without myelopathy or radiculopathy, lumbar region; M79.10 Myalgia, unspecified site; M25.561 Pain in right knee; M25.562 Pain in left knee ==

== ENCOUNTER → 2020-04-21 | Outpatient (CLI) | payer MEDICARE, BC | LOC: M.PC 07:58 | PROVIDERS: ATTEND Physical Medicine & Rehabilitation | DX: M47.812 Spondylosis without myelopathy or radiculopathy, cervical region (principal); M79.10 Myalgia, unspecified site; M47.816 Spondylosis without myelopathy or radiculopathy, lumbar region; M50.30 Other cervical disc degeneration, unspecified cervical region; M51.36 Other intervertebral disc degeneration, lumbar region ==

== ENCOUNTER → 2020-05-05 | Outpatient (CLI) | payer MEDICARE, BC | LOC: M.PC 07:22 | PROVIDERS: ATTEND Physical Medicine & Rehabilitation | DX: M51.36 Other intervertebral disc degeneration, lumbar region (principal); M47.816 Spondylosis without myelopathy or radiculopathy, lumbar region; M43.02 Spondylolysis, cervical region; M50.30 Other cervical disc degeneration, unspecified cervical region; M79.10 Myalgia, unspecified site ==

== ENCOUNTER → 2020-05-19 | Outpatient (CLI) | payer MEDICARE, BC | END | disposition home or self-care (01) | LOC: M.PC 07:37 | PROVIDERS: ATTEND Physical Medicine & Rehabilitation | DX: M79.18 Myalgia, other site (principal); G89.29 Other chronic pain; M54.5 Low back pain; M51.36 Other intervertebral disc degeneration, lumbar region; M47.896 Other spondylosis, lumbar region; M50.10 Cervical disc disorder with radiculopathy, unspecified cervical region; M47.892 Other spondylosis, cervical region; Z98.890 Other specified postprocedural states; Z79.899 Other long term (current) drug therapy; Z96.653 Presence of artificial knee joint, bilateral ==

== ENCOUNTER → 2020-06-02 | Outpatient (CLI) | payer MEDICARE, BC | LOC: M.PC 07:45 | PROVIDERS: ATTEND Physical Medicine & Rehabilitation | DX: M51.36 Other intervertebral disc degeneration, lumbar region (principal); M47.816 Spondylosis without myelopathy or radiculopathy, lumbar region; M50.30 Other cervical disc degeneration, unspecified cervical region ==

== ENCOUNTER → 2020-06-16 | Outpatient (CLI) | payer MEDICARE, BC | LOC: M.PC 07:46 | PROVIDERS: ATTEND Physical Medicine & Rehabilitation | DX: M51.36 Other intervertebral disc degeneration, lumbar region (principal); M50.30 Other cervical disc degeneration, unspecified cervical region ==

== ENCOUNTER → 2020-06-30 | Outpatient (CLI) | payer MEDICARE, BC | LOC: M.PC 07:36 | PROVIDERS: ATTEND Physical Medicine & Rehabilitation | DX: M51.36 Other intervertebral disc degeneration, lumbar region (principal); M47.816 Spondylosis without myelopathy or radiculopathy, lumbar region; M47.812 Spondylosis without myelopathy or radiculopathy, cervical region; M50.30 Other cervical disc degeneration, unspecified cervical region; M79.10 Myalgia, unspecified site ==

== ENCOUNTER → 2020-07-07 | Outpatient (CLI) | payer MEDICARE, BC ==
[2020-07-07 14:07] LABS: ABSOLUTE BASOPHILS 0.1 thou/uL (0.0-0.2); ABSOLUTE EOSINOPHILS 0.3 thou/uL (0.0-0.7); ABSOLUTE LYMPHOCYTES 2.5 thou/uL (0.8-5.3); ABSOLUTE MONOCYTES 0.8 thou/uL (0.0-1.2); BASOPHILS 0.8 %; EOSINOPHILS 2.4 %; HEMATOCRIT 41.2 % (42.0-52.0); HEMOGLOBIN 13.6 gm/dL (14.0-18.0); LYMPHOCYTES 21.8 %; MCH 29.5 pg (26.0-34.0); MCHC 33.1 g/dL (28.0-37.0); MCV 89.2 fL (80.0-100.0); MONOCYTES 6.6 %; MPV 8.8 fl. (7.2-11.1); NUCLEATED RBCS 0 /100WBC; PLATELET COUNT* 265 thou/uL (150-400); POLYS 68.4 %; RBC 4.62 mil/uL (4.50-6.00); RDW-CV 13.8 % (10.5-14.5); WBC 11.6 thou/uL (4.0-11.0)
[2020-07-07 14:16] LABS: CALCIUM 9.5 mg/dL (8.5-10.1); CREATININE 1.4 mg/dL (0.6-1.3); MAGNESIUM 1.9 mg/dL (1.8-2.4); PHOSPHORUS* 2.7 mg/dL (2.5-4.9); POTASSIUM 4.2 mmol/L (3.5-5.1)
[2020-07-07 14:28] LABS: CALCIUM 9.3 mg/dL (8.5-10.1); CREATININE 1.4 mg/dL (0.6-1.3)
[2020-07-07 16:17] LABS: URINE BILIRUBIN NEGATIVE (Negative); URINE BLOOD NEGATIVE (Negative); URINE CLARITY CLEAR; URINE COLOR YELLOW; URINE GLUCOSE-RANDOM 1+ (Negative); URINE KETONES NEGATIVE (Negative); URINE LEUKOCYTES NEGATIVE (Negative); URINE NITRITE NEGATIVE (Negative); URINE PROTEIN TRACE (Negative); URINE SPECIFIC GRAVITY 1.025 (1.005-1.030); URINE UROBILINOGEN 0.2 E.U./dl (0.2-1.0)
[2020-07-09 15:09] LABS: GLOBULIN TOTAL 4.1 g/dL (2.2-3.9); M-SPIKE Not Observed g/dL (Not Observed)
[2020-07-09 18:06] LABS: KAPPA FREE LIGHT CHAINS 35.5 mg/L (3.3-19.4); LAMBDA FREE LIGHT CHAINS 31.2 mg/L (5.7-26.3)
== END ==
LOC: M.LAB 13:26
PROVIDERS: ATTEND Internal Medicine
DX: N18.32 Chronic kidney disease, stage 3b (principal)

== ENCOUNTER → 2020-07-22 | Outpatient (CLI) | payer MEDICARE, BC | LOC: M.ULTRA 10:48 | PROVIDERS: ATTEND Internal Medicine | DX: N18.32 Chronic kidney disease, stage 3b (principal) ==

== ENCOUNTER → 2020-08-11 | Outpatient (CLI) | payer MEDICARE, BC | LOC: M.PC 07:45 | PROVIDERS: ATTEND Physical Medicine & Rehabilitation | DX: M50.30 Other cervical disc degeneration, unspecified cervical region (principal); M47.812 Spondylosis without myelopathy or radiculopathy, cervical region; M79.10 Myalgia, unspecified site; G89.4 Chronic pain syndrome; Z88.8 Allergy status to other drugs, medicaments and biological substances; Z79.899 Other long term (current) drug therapy ==

== ENCOUNTER → 2020-09-03 | Outpatient (CLI) | payer MEDICARE, BC | LOC: M.PC 06:16 | PROVIDERS: ATTEND Physical Medicine & Rehabilitation | DX: M51.16 Intervertebral disc disorders with radiculopathy, lumbar region (principal); M47.816 Spondylosis without myelopathy or radiculopathy, lumbar region; M47.812 Spondylosis without myelopathy or radiculopathy, cervical region; M79.10 Myalgia, unspecified site; M25.561 Pain in right knee; M25.562 Pain in left knee ==

== ENCOUNTER → 2020-09-22 | Outpatient (CLI) | payer MEDICARE, BC | LOC: M.PC 08:02 | PROVIDERS: ATTEND Physical Medicine & Rehabilitation | DX: M50.10 Cervical disc disorder with radiculopathy, unspecified cervical region (principal); M79.10 Myalgia, unspecified site; Z79.891 Long term (current) use of opiate analgesic; Z79.899 Other long term (current) drug therapy ==

== ENCOUNTER → 2020-10-08 | Outpatient (CLI) | payer MEDICARE, BC ==
[~2020-10-08] MED LIST changes: +BP MED PO
== END ==
LOC: M.PC 08:42
PROVIDERS: ATTEND Physical Medicine & Rehabilitation
DX: M51.36 Other intervertebral disc degeneration, lumbar region (principal); M47.812 Spondylosis without myelopathy or radiculopathy, cervical region; M47.816 Spondylosis without myelopathy or radiculopathy, lumbar region; M54.5 Low back pain; G89.29 Other chronic pain; M19.90 Unspecified osteoarthritis, unspecified site; Z79.899 Other long term (current) drug therapy; Z79.891 Long term (current) use of opiate analgesic

== ENCOUNTER → 2020-11-05 | Outpatient (CLI) | payer MEDICARE, BC | LOC: M.PC 10-29 09:30 | PROVIDERS: ATTEND Physical Medicine & Rehabilitation | DX: M47.812 Spondylosis without myelopathy or radiculopathy, cervical region (principal); M50.30 Other cervical disc degeneration, unspecified cervical region; M79.10 Myalgia, unspecified site; M79.18 Myalgia, other site; M54.5 Low back pain; M47.816 Spondylosis without myelopathy or radiculopathy, lumbar region; M51.36 Other intervertebral disc degeneration, lumbar region ==

== ENCOUNTER → 2020-11-24 | Outpatient (CLI) | payer MEDICARE, BC ==
[2020-11-24 12:10] LABS: HEMATOCRIT 40.6 % (42.0-52.0); HEMOGLOBIN 13.7 gm/dL (14.0-18.0)
[2020-11-24 12:40] LABS: ALBUMIN 3.7 g/dL (3.4-5.0); CALCIUM 8.9 mg/dL (8.5-10.1); CREATININE 1.7 mg/dL (0.6-1.3); PHOSPHORUS* 3.3 mg/dL (2.5-4.9); TOTAL BILIRUBIN 0.3 mg/dL (<0.1-1.0); TOTAL PROTEIN 8.4 g/dL (6.4-8.2)
[2020-11-24 13:27] LABS: CREATININE 1.6 mg/dL (0.6-1.3); PHOSPHORUS* 3.7 mg/dL (2.5-4.9)
== END ==
LOC: M.LAB 11:51
PROVIDERS: ATTEND Internal Medicine
DX: N18.32 Chronic kidney disease, stage 3b (principal)

== ENCOUNTER → 2020-11-26 | Outpatient (CLI) | payer MEDICARE, BC | LOC: M.PC 09:00 | PROVIDERS: ATTEND Physical Medicine & Rehabilitation | DX: M47.812 Spondylosis without myelopathy or radiculopathy, cervical region (principal); M50.30 Other cervical disc degeneration, unspecified cervical region; M17.0 Bilateral primary osteoarthritis of knee; Z79.899 Other long term (current) drug therapy; Z79.891 Long term (current) use of opiate analgesic ==

== ENCOUNTER → 2020-12-17 | Outpatient (CLI) | payer MEDICARE, BC | LOC: M.PC 08:20 | PROVIDERS: ATTEND Physical Medicine & Rehabilitation | DX: M47.26 Other spondylosis with radiculopathy, lumbar region (principal); M50.30 Other cervical disc degeneration, unspecified cervical region; M54.5 Low back pain; Z79.899 Other long term (current) drug therapy; Z79.891 Long term (current) use of opiate analgesic ==

== ENCOUNTER → 2020-12-31 | Outpatient (CLI) | payer MEDICARE, BC | LOC: M.PC 08:46 | PROVIDERS: ATTEND Physical Medicine & Rehabilitation | DX: M47.816 Spondylosis without myelopathy or radiculopathy, lumbar region (principal); M51.36 Other intervertebral disc degeneration, lumbar region; M47.812 Spondylosis without myelopathy or radiculopathy, cervical region; M50.30 Other cervical disc degeneration, unspecified cervical region; M25.561 Pain in right knee; M25.562 Pain in left knee ==

== ENCOUNTER → 2021-01-21 | Outpatient (CLI) | payer MEDICARE, BC | LOC: M.PC 09:10 | PROVIDERS: ATTEND Physical Medicine & Rehabilitation | DX: M50.30 Other cervical disc degeneration, unspecified cervical region (principal); M51.36 Other intervertebral disc degeneration, lumbar region; M47.816 Spondylosis without myelopathy or radiculopathy, lumbar region; M47.812 Spondylosis without myelopathy or radiculopathy, cervical region; M25.561 Pain in right knee; M25.562 Pain in left knee; Z96.653 Presence of artificial knee joint, bilateral ==

== ENCOUNTER → 2021-02-11 | Outpatient (CLI) | payer MEDICARE, BC | LOC: M.PC 09:10 | PROVIDERS: ATTEND Physical Medicine & Rehabilitation | DX: M47.816 Spondylosis without myelopathy or radiculopathy, lumbar region (principal); M51.36 Other intervertebral disc degeneration, lumbar region; M47.812 Spondylosis without myelopathy or radiculopathy, cervical region; M50.30 Other cervical disc degeneration, unspecified cervical region; M79.18 Myalgia, other site; Z96.651 Presence of right artificial knee joint; Z96.652 Presence of left artificial knee joint ==

== ENCOUNTER → 2021-03-11 | Outpatient (CLI) | payer MEDICARE, BC ==
[~2021-03-11] MED LIST changes: +REQUIP 1 MG TABL1 M1 PO
== END ==
LOC: M.PC 09:11
PROVIDERS: ATTEND Physical Medicine & Rehabilitation
DX: M47.816 Spondylosis without myelopathy or radiculopathy, lumbar region (principal); M51.26 Other intervertebral disc displacement, lumbar region; M47.812 Spondylosis without myelopathy or radiculopathy, cervical region; M50.30 Other cervical disc degeneration, unspecified cervical region; M79.18 Myalgia, other site; Z96.653 Presence of artificial knee joint, bilateral

== ENCOUNTER → 2021-03-25 | Outpatient (CLI) | payer MEDICARE, BC | LOC: M.PC 08:53 | PROVIDERS: ATTEND Physical Medicine & Rehabilitation | DX: M47.816 Spondylosis without myelopathy or radiculopathy, lumbar region (principal); M51.26 Other intervertebral disc displacement, lumbar region; M47.812 Spondylosis without myelopathy or radiculopathy, cervical region; M50.30 Other cervical disc degeneration, unspecified cervical region; M79.18 Myalgia, other site; M25.561 Pain in right knee; M25.562 Pain in left knee; Z96.653 Presence of artificial knee joint, bilateral ==

== ENCOUNTER 2021-04-14 23:56 | Emergency (ER) | payer MEDICARE, BC ==
[~2021-04-14] VITALS: Ht 180.3 cm; Wt 112.2 kg
[2021-04-15] MEDS ORDERED: MS CONTIN 60 MG60 M1 PO (01:11)
[2021-04-15] MEDS ORDERED: PREDNISONE50 MG PO (01:47)
[2021-04-15 02:00] VITALS: BP 157/76
[2021-04-15] MEDS ORDERED: MORPHINE SULFAT15 MG PO (10:36)
--- NOTE | 2021-04-15 14:18 | EKG ---
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: : 1940 Requested By: Shiloh Mcdonald Order Number: [id number] Anish MD: Trip Eng Measurements Intervals [place] Rate: 81 P: -3 [place]: 166 QRS: 73 QRSD: 110 T: 86 QT: 394 QTc: 458 Interpretive Statements Sinus rhythm Possible right ventricular hypertrophy Compared to ECG 09/22/2017 09:24:34 No significant changes Electronically Signed On 04-15-2021 14:18:24 SOFTWARE DESIGNER by Trip Eng [email or web address] <ELECTRONICALLY SIGNED> By: Trip Eng MD, [facility] 04/15/21 1418 Trip Eng MD, [facility] /EPI
== END 2021-04-15 02:00 | disposition home or self-care (01) ==
LOC: M.ERS 23:56
DX: R42 Dizziness and giddiness (principal); E78.00 Pure hypercholesterolemia, unspecified; M19.90 Unspecified osteoarthritis, unspecified site; I25.10 Atherosclerotic heart disease of native coronary artery without angina pectoris; G89.29 Other chronic pain; I10 Essential (primary) hypertension; Z79.82 Long term (current) use of aspirin; Z79.899 Other long term (current) drug therapy; Z96.652 Presence of left artificial knee joint

== ENCOUNTER → 2021-04-15 | Outpatient (CLI) | payer MEDICARE, BC ==
[~2021-04-15] MED LIST changes: +MS CONTIN 60 MG60 M1 PO; +PREDNISONE50 MG PO
== END ==
LOC: M.PC 08:43
PROVIDERS: ATTEND Physical Medicine & Rehabilitation
DX: M47.816 Spondylosis without myelopathy or radiculopathy, lumbar region (principal); M51.26 Other intervertebral disc displacement, lumbar region; M47.812 Spondylosis without myelopathy or radiculopathy, cervical region; M50.30 Other cervical disc degeneration, unspecified cervical region; M25.561 Pain in right knee; M25.562 Pain in left knee; Z96.653 Presence of artificial knee joint, bilateral

== ENCOUNTER → 2021-05-20 | Outpatient (CLI) | payer MEDICARE, BC ==
[~2021-05-20] MED LIST changes: +HYDROCODON-ACE1 EAC8 PO
== END ==
LOC: M.PC 09:30
PROVIDERS: ATTEND Physical Medicine & Rehabilitation
DX: M47.816 Spondylosis without myelopathy or radiculopathy, lumbar region (principal); M51.26 Other intervertebral disc displacement, lumbar region; M47.812 Spondylosis without myelopathy or radiculopathy, cervical region; M50.30 Other cervical disc degeneration, unspecified cervical region; M79.18 Myalgia, other site; M25.561 Pain in right knee; M25.562 Pain in left knee; Z96.653 Presence of artificial knee joint, bilateral

== ENCOUNTER → 2021-06-10 | Outpatient (CLI) | payer MEDICARE, BC | LOC: M.PC 08:36 | PROVIDERS: ATTEND Physical Medicine & Rehabilitation | DX: M51.36 Other intervertebral disc degeneration, lumbar region (principal); M47.816 Spondylosis without myelopathy or radiculopathy, lumbar region; M47.812 Spondylosis without myelopathy or radiculopathy, cervical region; M50.30 Other cervical disc degeneration, unspecified cervical region; Z96.653 Presence of artificial knee joint, bilateral ==

== ENCOUNTER → 2021-07-01 | Outpatient (CLI) | payer MEDICARE, BC | LOC: M.PC 08:44 | PROVIDERS: ATTEND Physical Medicine & Rehabilitation | DX: M50.30 Other cervical disc degeneration, unspecified cervical region (principal); M25.562 Pain in left knee; M25.561 Pain in right knee; M54.50 Low back pain, unspecified; Z79.891 Long term (current) use of opiate analgesic; M19.012 Primary osteoarthritis, left shoulder; M51.36 Other intervertebral disc degeneration, lumbar region; M47.812 Spondylosis without myelopathy or radiculopathy, cervical region; M47.816 Spondylosis without myelopathy or radiculopathy, lumbar region; M79.18 Myalgia, other site ==